=== PATIENT | male | born 1960 | race Caucasian/White ===

== ENCOUNTER 2025-04-29 12:39 | Emergency (ER) | payer MEDICAID ==
[~2025-04-29] VITALS: Ht 165.1 cm; Wt 80.0 kg
[~2025-04-29 12:39] MED LIST: ATOR40TA28 PO; GLIP5TAB16 PO; METF-1211 PO
[2025-04-29 12:55] VITALS: BP 130/80; PULSE 71; RESP 18; TEMP 98.5; O2SAT 98
[2025-04-29] MEDS: BACITRACIN 28 GM OINTMENT TP ONE (13:44)
[2025-04-29] MEDS: BACITRACIN 0.9 GM PACKET OINTMENT TP ONE (13:44)
== END 2025-04-29 13:52 | disposition home or self-care (01) ==
LOC: EMS 12:44
DX: S01.01XD Laceration without foreign body of scalp, subsequent encounter (principal); E11.9 Type 2 diabetes mellitus without complications; F10.90 Alcohol use, unspecified, uncomplicated; Z79.899 Other long term (current) drug therapy; X58.XXXD Exposure to other specified factors, subsequent encounter; Y90.9 Presence of alcohol in blood, level not specified
CPT/HCPCS: 99282; Z7502; Z7610